=== PATIENT | male | born 1950 | race Caucasian/White ===

== ENCOUNTER 2018-06-24 17:17 | Emergency (ER) | payer OTHER ==
[2018-06-24] MEDS ORDERED: SODIUM CHLORIDE 0.9% 1L BAG IV* (17:35)
[2018-06-24] MEDS ORDERED: PROPOFOL 100 ML IV (18:00)
[2018-06-24] MEDS ORDERED: EPINEPHrine 10 MCG/1ml (10 ML SYG) IV (21:00)
== END 2018-06-25 01:37 | disposition expired ==
LOC: E/R 06-25 01:37
DX: I46.9 Cardiac arrest, cause unspecified (principal)
CPT/HCPCS: 31500; 36415; 92950; 93005; 94002; 99291-25